=== PATIENT | male | born 1955 | race Caucasian/White ===

== ENCOUNTER → 2016-05-16 | Outpatient (CLI) | payer BC ==
[~2016-05-16] MED LIST: ASPEC325 PO; ATOR-22 PO; CLB200 PO; HYDR-5688 PO; PARO1TAB27 PO; SNK PO; TRAM-10 PO; TRAZ50TA35 PO
[2016-05-16 07:29] LABS: BASO % 0.5 %; BASO ABS # 0.03 K/uL (0-0.2); COMPLETE YES; HEMATOCRIT 46.2 % (42-52); IG% 0.3 %; LYMPH % 20.1 %; LYMPH ABS # 1.16 K/uL (1.2-3.4); MEAN CELL VOLUME 89.5 fL (80-100); MEAN CORPUSCULAR HEMOGLOBIN 30.6 pg (25-34); MEAN CORPUSCULAR HGB CONC 34.2 g/dl (32-36); MONO % 7.6 %; NEUT % 68.5 %; PLATELET COUNT 290 K/uL (130-400); RED BLOOD COUNT 5.16 M/uL (4.7-6.1); WHITE BLOOD COUNT 5.76 K/uL (4.8-10.8)
[2016-05-16 07:54] LABS: ALT/SGPT 18 U/L (12-78); AST/SGOT 11 U/L (15-37); BLOOD UREA NITROGEN 13 mg/dl (7-18); BUN/CREATININE RATIO 13.4 (10-20); CARBON DIOXIDE 24 mmol/L (21-32); CHLORIDE 111 mmol/L (98-107); CREATININE 0.98 mg/dl (0.60-1.40); GLUCOSE 111 mg/dl (70-99); POTASSIUM 3.8 mmol/L (3.5-5.1); SODIUM 145 mmol/L (136-145)
[2016-05-16 07:57] LABS: ALB/GLOB RATIO 1.3 (0.9-2); ALKALINE PHOSPHATASE 59 U/L (45-117); CHOLESTEROL 188 mg/dl (0-200); CHOLESTEROL/HDL RATIO 3.6; HDL CHOLESTEROL 52 mg/dl; LDL CHOLESTEROL CALCULATED 108 mg/dl; TRIGLYCERIDES 138 mg/dl (0-150); VERY LOW DENSITY LIPOPROT CALC 28 mg/dl
== END | disposition home or self-care (01) ==
LOC: C.LAB 07:03
PROVIDERS: ATTEND Nurse Practitioner Family
DX: E78.00 Pure hypercholesterolemia, unspecified (principal); R73.9 Hyperglycemia, unspecified; M19.90 Unspecified osteoarthritis, unspecified site

== ENCOUNTER → 2016-08-02 | Outpatient (CLI) | payer BC ==
[~2016-08-02] MED LIST changes: +BUSP-8 PO; +CHOL200010 PO; +ZINC1CAP PO
[2016-08-02 09:59] LABS: BLOOD UREA NITROGEN 11 mg/dl (7-18); CREATININE 0.95 mg/dl (0.60-1.40)
== END | disposition home or self-care (01) ==
LOC: C.LAB 07:00
PROVIDERS: ATTEND Physician Assistant
DX: Z11.59 Encounter for screening for other viral diseases (principal); E55.9 Vitamin D deficiency, unspecified; H90.42 Sensorineural hearing loss, unilateral, left ear, with unrestricted hearing on the contralateral side

== ENCOUNTER → 2016-08-04 | Outpatient (CLI) | payer BC ==
[~2016-08-04] MED LIST changes: +GADAVIST IV PRN
--- NOTE | 2016-08-04 17:55 | DIAGNOSTIC IMAGING REPORT ---
BRAIN COMBO FOR IAC CLINICAL HISTORY: Left sided asymmetric sensorineural hearing loss. COMPARISON STUDY: Head CT February 12, 2015. TECHNIQUE: Utilizing 1.5 Aleyda magnet and dedicated coil, multiplanar, multi echo imaging of the brain was performed pre and postcontrast administration with thin cut imaging through the internal auditory canals. Injection of 7.5 cc of Gadavist IV was uneventful. FINDINGS: There are no areas of restricted diffusion. No acute intracranial hemorrhage, midline shift or mass effect is present. Brain volume is normal. Ventricular system is normal. Basilar cisterns are patent. No extra-axial collections are present. Flow-voids for the major intracranial vessels are present. There are no intracranial masses or areas of pathologic enhancement. No abnormality is identified within the internal auditory canals. Semicircular canals are intact. There is no mass within the cerebellopontine angles. Calvarial signal is unremarkable. Scattered white matter T2 hyperintense foci likely reflect mild small vessel disease. IMPRESSION: 1. No acute intracranial findings. 2. No abnormalities within the internal auditory canals. 3. No intracranial masses or pathologic enhancement. 4. Scattered white matter T2 hyperintense foci which likely reflect mild small vessel disease. Electronically signed by: Brown Barroso M.D. 08/04/2016 5:53 PM Dictated Date/Time: 08/04/2016 5:48 PM
== END ==
LOC: C.MRI 16:35
PROVIDERS: ATTEND Physician Assistant
DX: H90.42 Sensorineural hearing loss, unilateral, left ear, with unrestricted hearing on the contralateral side (principal)

== ENCOUNTER → 2016-11-01 | Outpatient (CLI) | payer BC ==
[~2016-11-01] MED LIST changes: -BUSP-8 PO; -CHOL200010 PO; -GADAVIST IV PRN; -ZINC1CAP PO
[2016-11-01 10:19] LABS: ALT/SGPT 18 U/L (12-78); BLOOD UREA NITROGEN 17 mg/dl (7-18); BUN/CREATININE RATIO 16.8 (10-20); CALCIUM 9.3 mg/dl (8.5-10.1); CARBON DIOXIDE 28 mmol/L (21-32); CHLORIDE 109 mmol/L (98-107); CHOLESTEROL 182 mg/dl (0-200); CREATININE 0.98 mg/dl (0.60-1.40); GLUCOSE 101 mg/dl (70-99); POTASSIUM 4.2 mmol/L (3.5-5.1); SODIUM 144 mmol/L (136-145); TRIGLYCERIDES 86 mg/dl (0-150); VERY LOW DENSITY LIPOPROT CALC 17 mg/dl
[2016-11-01 10:22] LABS: ALB/GLOB RATIO 1.2 (0.9-2); ALKALINE PHOSPHATASE 75 U/L (45-117); AST/SGOT 13 U/L (15-37); CHOLESTEROL/HDL RATIO 2.6; HDL CHOLESTEROL 69 mg/dl; LDL CHOLESTEROL CALCULATED 96 mg/dl
== END | disposition home or self-care (01) ==
LOC: C.LAB 07:13
PROVIDERS: ATTEND Nurse Practitioner Family
DX: R73.9 Hyperglycemia, unspecified (principal); E78.00 Pure hypercholesterolemia, unspecified

== ENCOUNTER → 2017-04-13 | Day surgery (SDC) | payer BC ==
[2017-03-28 15:00] VITALS: Ht 182.9 cm; Wt 75.5 kg
--- NOTE | 2017-03-28 15:33 | PAT Medication Instructions ---
Service Date Mar 28, 2017. Current Home Medication List Atorvastatin (Lipitor), 20 MG PO QPM Buspirone Hcl (Buspirone Hcl), 1 TAB PO BID Cholecalciferol (Vitamin D), 1 TAB PO HS Paroxetine (Paxil), 20 MG PO BID Trazodone Hcl (Trazodone), 50 MG PO HS PRN for Sleep Zinc Sulfate (Zinc Sulfate), 220 MG PO QPM Medication Instructions For Your Scheduled Surgery - Take the following medications the morning of surgery with a sip of water: Paroxetine (Paxil), 20 MG PO BID Buspirone Hcl (Buspirone Hcl), 1 TAB PO BID - Take the following medications as scheduled the night before surgery: Zinc Sulfate (Zinc Sulfate), 220 MG PO QPM Trazodone Hcl (Trazodone), 50 MG PO HS PRN for Sleep (if needed) Paroxetine (Paxil), 20 MG PO BID Cholecalciferol (Vitamin D), 1 TAB PO HS Atorvastatin (Lipitor), 20 MG PO QPM Buspirone Hcl (Buspirone Hcl), 1 TAB PO BID If you have any questions please call us at [phone] or [phone] or [phone]
[2017-03-28 16:02] LABS: BASO % 0.3 %; BASO ABS # 0.03 K/uL (0-0.2); EOS % 1.2 %; EOS ABS # 0.11 K/uL (0-0.5); HEMATOCRIT 43.5 % (42-52); HEMOGLOBIN 14.8 g/dL (14.0-18.0); IG# 0.02 K/uL (0.00-0.02); LYMPH % 18.7 %; LYMPH ABS # 1.76 K/uL (1.2-3.4); MEAN CELL VOLUME 91.4 fL (80-100); MEAN CORPUSCULAR HEMOGLOBIN 31.1 pg (25-34); MEAN PLATELET VOLUME 9.3 fL (7.4-10.4); MONO ABS # 0.56 K/uL (0.11-0.59); NEUT % 73.6 %; NEUT ABS # 6.92 K/uL (1.4-6.5); PLATELET COUNT 221 K/uL (130-400); RED CELL DISTRIBUTION WIDTH CV 14.1 % (11.5-14.5); RED CELL DISTRIBUTION WIDTH SD 47.2 fL (36.4-46.3)
[2017-03-28 16:10] LABS: CREATININE 0.87 mg/dl (0.60-1.40); POTASSIUM 4.1 mmol/L (3.5-5.1)
--- NOTE | 2017-03-28 16:14 | DIAGNOSTIC IMAGING REPORT ---
CHEST 2 VIEWS ROUTINE CLINICAL HISTORY: PAT preoperative evaluation COMPARISON STUDY: 02/12/2015 FINDINGS: The bones soft tissues and hemidiaphragms are normal. The cardiomediastinal silhouette is normal. The lungs are clear. The pulmonary vasculature is normal. IMPRESSION: Negative chest. The above report was generated using voice recognition software. It may contain grammatical, syntax or spelling errors. Electronically signed by: Tariq Gamble M.D. 03/28/2017 4:12 PM Dictated Date/Time: 03/28/2017 4:12 PM
[~2017-04-13] VITALS: Ht 182.9 cm; Wt 75.5 kg
[~2017-04-13] MED LIST changes: -ASPEC325 PO; +ATROPINE SULFATE 0.1 MG/ML 5ML SYR IV PRN; +BACITRACIN OINT 15 GM TUBE ONE; +BUPIVACAINE 0.5 % 5 MG/1 ML MPF 30ML VIAL ONE; +BUSP-8 PO; +CEFAZOLIN SOD 2000MG/15 ML IV PUSH IV ONE; +CHOL200010 PO; -CLB200 PO; +DEXAMETHASONE SOD INJ 4 MG/ML VIAL ONE; +EpHEDrine SULFATE 50MG/5ML SYR ONE; +EpHEDrine SULFATE INJ 50 MG/ML AMP IV PRN; +FENTANYL CITRATE INJ 50 MCG/1 ML 2 ML VIAL IV PRN; +FENTANYL CITRATE INJ 50 MCG/1 ML 2 ML VIAL ONE; -HYDR-5688 PO; +HYDROmorphone INJ 1 MG/ML SYR IV PRN; +LIDOCAINE HCL 2% 2 ML VIAL (20MG/ML) ONE; +MIDAZOLAM HCL 1 MG/ML 2ML VIAL ONE; +ONDANSETRON INJ 2 MG/ML 2 ML VIAL IV PRN; +ONDANSETRON INJ 2 MG/ML 2 ML VIAL ONE; +OXYC7.5T65 PO; +OXYCODONE/ACETAMINOPHEN 7.5-325 TAB PO PRN; +PROMETHAZINE HCL INJ 12.5 MG in SODIUM CHLORIDE 0.9% 50ML 50 ML IV PRN; +PROPOFOL IV EMULSION 10 MG/ML 20 ML VIAL IV ONE; -SNK PO; +SUCCINYLCHOLINE 100MG/5ML SYR IV ONE; +SULF800T23 PO; -TRAM-10 PO; +ZINC1CAP PO
[2017-04-13 13:10] VITALS: BP 144/80; PULSE 71; TEMP 37; O2SAT 98
--- NOTE | 2017-04-13 13:21 | History & Physical Bridge Note ---
H&P Re-Evaluation Bridge Note: I have examined the patient, reviewed the History & Physical and in the interval since the performance of the History & Physical I have noted the following changes of clinical significance: No changes noted
--- NOTE | 2017-04-13 14:29 | Discharge Instructions ---
Discharge Instructions Date of Service Apr 13, 2017. Admission Reason for Admission: Hydrocele Discharge Discharge Diagnosis / Problem: Right Hydrocele Discharge Goals Goal(s): Decrease discomfort, Improve function Activity Recommendations Activity Limitations: per Instructions/Follow-up section Lifting Limitations: no more than 25 pounds, gradually increase as tolerated, until after follow-up appointment Exercise/Sports Limitations: gradually increase as tolerated, until after follow-up appointment May Resume Sexual Activity: after follow-up appointment Shower/Bathe: tomorrow . Instructions / Follow-Up Instructions / Follow-Up Scrotal support and elevation. Monitor for injury. No heavy lifting. No baths or hot tubs. Bandage off tomorrow. Okay to wash 2-3 x daily with warm soapy water. Okay to shower tomorrow. Ice okay 20 mins at a time. Pain meds as needed. Call if swelling or fever. Current Hospital Diet Patient's current hospital diet: reg Discharge Diet Recommended Diet: Regular Diet Procedures Procedures Performed: Right excision of hydrocele Pending Studies Studies pending at discharge: no Medical Emergencies . Who to Call and When: Medical Emergencies: If at any time you feel your situation is an emergency, please call 911 immediately. . Non-Emergent Contact Non-Emergency issues call your: Primary Care Provider, Urologist Call Non-Emergent contact if: you have a fever, temperature is above 101, your pain is not controlled, your pain is worsening, wound has increased drainage, wound has increased redness, wound has increased pain . . "Provider Documentation" section prepared by Tonio Ash,. . VTE Core Measure Inpt VTE Proph given/why not?: SCD's
--- NOTE | 2017-04-13 16:16 | [facility] Operative Report ---
Operative Report Operative Date Apr 13, 2017. Pre-Operative Diagnosis Right Hydrocele Post-Operative Diagnosis Same Procedure(s) Performed Right Hydrocelectomy Surgeon Mihir Inbound Sales Advisor Surgeon(s) None Estimated Blood Loss 18cc Findings Large right hydrocele extending up cord. No masses or lesions. Specimens Right Hydrocele sac Anesthesia General Complication(s) None Disposition Recovery Room / PACU Indications Large bothersome hydrocele on right with worsening issues and discomfort. Risks and benefits discussed at length. Description of Procedure Patient was consented and brought back to the operating room. Patient was placed under anesthesia in the supine position. Patient was prepped and draped in the regular sterile fashion. A time out was completed. With timeout completed, the midline raphe was marked and local anesthetic placed. An incision was made with a scalpel and the subcutaneous tissues were opened with a bovie and the right testicle delivered from the right hemiscrotum. A large hydrocele was observed. The hydrocele was opened and excess tissues were removed. The testicle and cord and sturctures were examined. No bleeding or other areas of concern were noted. At this point, a 3- 0 chromic suture was used to oversew the hydrocele sac edges and to control any bleeding. The hemiscrotum was irrigated and all bleeding controlled. A cord block was completed. The testicle was delivered back into the scrotum and the subcutaneous tissues were closed with a running vicryl suture. The skin was closed with a running monocryl suture. The area was cleaned and adhesive glue was placed on the incision. Bandages were placed as well as scrotal support. The patient was cleaned, aroused from anesthesia, and transferred to the pacu in stable condition having tolerated the procedure well with no complications. I was present and participated in all aspects of the procedure. I attest to the content of the Intraoperative Record and any orders documented therein. Any exceptions are noted below.
--- NOTE | 2017-04-13 17:13 | Anesthesiology Progress Note ---
Anesthesia Post Op Note Date & Time Apr 13, 2017 at 17:13 Vital Signs Pain Intensity: 0 Vital Signs Past 12 Hours Date Time Temp Pulse Resp B/P (MAP) Pulse Ox O2 Delivery O2 Flow Rate FiO2 04/13/17 17:05 78 21 126/81 92 Room Air 04/13/17 16:55 81 24 133/79 94 Room Air 04/13/17 16:45 84 14 128/67 96 Oxymask 10 04/13/17 16:37 36.3 94 19 159/67 99 Oxymask 10 04/13/17 13:10 37 71 18 144/80 (101) 98 Room Air Notes Mental Status: alert / awake / arousable, participated in evaluation Pt Amnestic to Procedure: Yes Nausea / Vomiting: adequately controlled Pain: adequately controlled Airway Patency, RR, SpO2: stable & adequate BP & HR: stable & adequate Hydration State: stable & adequate Anesthetic Complications: no major complications apparent
[2017-04-13 17:15] VITALS: BP 146/90; PULSE 84; TEMP 37.1; O2SAT 95
[2017-04-13 17:45] VITALS: BP 156/82; PULSE 77; O2SAT 95
[2017-04-13 18:05] VITALS: BP 149/86; PULSE 80; TEMP 36.9; O2SAT 95
--- NOTE | 2017-04-18 09:52 | Anesthesiology Progress Note ---
Anesthesia Progress Note Date of Service Apr 13, 2017. Progress Notes 1640 - During emergence patient was extubated. Upon removal of ETT, patient took a deep breath and soft bite block (4x4 guaze) fell into patient mouth. Exchanging well with 02 sat 96%. Clenching teeth. Unable to open mouth. Patient not following commands to open mouth. Dr. Alfonso called to room. 100mg propofol given. Assisted mask vent. Able to open pt mouth but unable to visualize bite block. Glidescope used to visualize bite block at back of throat and removed with forceps. Pt exchanging well. O2 sats high 90s. Patient awake with no issues. transported to PACU.
== END | disposition home or self-care (01) ==
LOC: C.ACU 12:50
PROVIDERS: ATTEND Urology
DX: N43.3 Hydrocele, unspecified (principal); G47.33 Obstructive sleep apnea (adult) (pediatric); F17.200 Nicotine dependence, unspecified, uncomplicated; E78.00 Pure hypercholesterolemia, unspecified; Z96.642 Presence of left artificial hip joint; Z98.52 Vasectomy status; F17.290 Nicotine dependence, other tobacco product, uncomplicated; F41.9 Anxiety disorder, unspecified; M19.90 Unspecified osteoarthritis, unspecified site; Z98.890 Other specified postprocedural states; Z79.899 Other long term (current) drug therapy; Z80.42 Family history of malignant neoplasm of prostate; Z80.1 Family history of malignant neoplasm of trachea, bronchus and lung

== ENCOUNTER → 2017-05-11 | Outpatient (CLI) | payer BC ==
[~2017-05-11] MED LIST changes: -ATROPINE SULFATE 0.1 MG/ML 5ML SYR IV PRN; -BACITRACIN OINT 15 GM TUBE ONE; -BUPIVACAINE 0.5 % 5 MG/1 ML MPF 30ML VIAL ONE; -CEFAZOLIN SOD 2000MG/15 ML IV PUSH IV ONE; -DEXAMETHASONE SOD INJ 4 MG/ML VIAL ONE; -EpHEDrine SULFATE 50MG/5ML SYR ONE; -EpHEDrine SULFATE INJ 50 MG/ML AMP IV PRN; -FENTANYL CITRATE INJ 50 MCG/1 ML 2 ML VIAL IV PRN; -FENTANYL CITRATE INJ 50 MCG/1 ML 2 ML VIAL ONE; -HYDROmorphone INJ 1 MG/ML SYR IV PRN; -LIDOCAINE HCL 2% 2 ML VIAL (20MG/ML) ONE; -MIDAZOLAM HCL 1 MG/ML 2ML VIAL ONE; -ONDANSETRON INJ 2 MG/ML 2 ML VIAL IV PRN; -ONDANSETRON INJ 2 MG/ML 2 ML VIAL ONE; -OXYCODONE/ACETAMINOPHEN 7.5-325 TAB PO PRN; -PROMETHAZINE HCL INJ 12.5 MG in SODIUM CHLORIDE 0.9% 50ML 50 ML IV PRN; -PROPOFOL IV EMULSION 10 MG/ML 20 ML VIAL IV ONE; -SUCCINYLCHOLINE 100MG/5ML SYR IV ONE
[2017-05-11 09:38] LABS: BASO % 0.3 %; BASO ABS # 0.03 K/uL (0-0.2); EOS % 1.5 %; EOS ABS # 0.13 K/uL (0-0.5); HEMATOCRIT 44.6 % (42-52); HEMOGLOBIN 15.6 g/dL (14.0-18.0); IG# 0.02 K/uL (0.00-0.02); LYMPH % 12.1 %; LYMPH ABS # 1.07 K/uL (1.2-3.4); MEAN CELL VOLUME 90.8 fL (80-100); MEAN CORPUSCULAR HEMOGLOBIN 31.8 pg (25-34); MEAN PLATELET VOLUME 9.3 fL (7.4-10.4); MONO % 8.9 %; MONO ABS # 0.78 K/uL (0.11-0.59); NEUT ABS # 6.78 K/uL (1.4-6.5); PLATELET COUNT 292 K/uL (130-400); RED CELL DISTRIBUTION WIDTH CV 14.4 % (11.5-14.5); RED CELL DISTRIBUTION WIDTH SD 47.9 fL (36.4-46.3); WHITE BLOOD COUNT 8.81 K/uL (4.8-10.8)
[2017-05-11 09:47] LABS: HEMOGLOBIN A1C 5.7 % (4.5-5.6)
[2017-05-11 10:11] LABS: ALBUMIN 3.9 gm/dl (3.4-5.0); ALT/SGPT 20 U/L (12-78); AST/SGOT 14 U/L (15-37); BLOOD UREA NITROGEN 11 mg/dl (7-18); CALCIUM 8.8 mg/dl (8.5-10.1); CARBON DIOXIDE 29 mmol/L (21-32); CREATININE 0.93 mg/dl (0.60-1.40); GLUCOSE 84 mg/dl (70-99); POTASSIUM 3.6 mmol/L (3.5-5.1); SODIUM 141 mmol/L (136-145)
[2017-05-11 10:13] LABS: ALKALINE PHOSPHATASE 91 U/L (45-117); CHOLESTEROL 150 mg/dl (0-200); LDL CHOLESTEROL CALCULATED 73 mg/dl; TOTAL PROTEIN 7.3 gm/dl (6.4-8.2)
== END | disposition home or self-care (01) ==
LOC: C.LAB 07:16
PROVIDERS: ATTEND Nurse Practitioner Family
DX: E78.00 Pure hypercholesterolemia, unspecified (principal); R73.9 Hyperglycemia, unspecified; E55.9 Vitamin D deficiency, unspecified

== ENCOUNTER → 2017-06-07 | Outpatient (CLI) | payer BC | END | disposition home or self-care (01) | LOC: C.LAB 07:39 | PROVIDERS: ATTEND Nurse Practitioner Family | DX: R03.0 Elevated blood-pressure reading, without diagnosis of hypertension (principal) ==

== ENCOUNTER 2018-11-08 06:47 | Inpatient (IN) ==
[2018-11-08] MEDS ORDERED: SODIUM CHLORIDE 0.9% 1000ML 1,000 ML IV SCH (07:15)
[2018-11-08] MEDS ORDERED: KETOROLAC TROMETHAMINE 15 MG/ML VIAL IV ONE (07:21)
--- NOTE | 2018-11-08 07:23 | XRay Report ---
XR chest 1V portable CLINICAL HISTORY: Dyspnea COMPARISON STUDY: Chest CT April 26, 2018. FINDINGS: Bibasilar opacities favor atelectasis. There is no evidence for pulmonary edema. Cardiomedi astinal silhouette is stable. Paucity of upper lobe vessels is noted. There is no pneumothorax or ple ural effusion. IMPRESSION: Bibasilar opacities, atelectasis is favored. Electronically signed by: Brown Barroso M.D. 11/08/2018 7:22 AM
[2018-11-08 07:49] LABS: Basophils # (auto) 0.02 K/uL (0-0.2); Basophils % (auto) 0.2 %; Eosinophils # (auto) 0.06 K/uL (0-0.5); Eosinophils % (auto) 0.5 %; Hematocrit (blood only) 42.1 % (42-52); Hemoglobin 14.4 g/dL (14.0-18.0); Immature Granulocytes # (auto) 0.04 K/uL (0.00-0.02); Immature Granulocytes % (auto) 0.4 %; Lymphocytes # (auto) 1.03 K/uL (1.2-3.4); Lymphocytes % (auto) 9.3 %; Mean Corpuscular Hgb Conc 34.2 g/dL (32-36); Mean Corpuscular Volume 90.5 fL (80-100); Mean Platelet Volume 8.6 fL (7.4-10.4); Monocytes # (auto) 1.21 K/uL (0.11-0.59); Monocytes % (auto) 10.9 %; Neutrophils % (auto) 78.7 %; Platelet Count 205 K/uL (130-400); RDW Coefficient of Variation 13.7 % (11.5-14.5); RDW Standard Deviation 45.4 fL (36.4-46.3); Red Blood Count 4.65 M/uL (4.7-6.1); White Blood Count 11.06 K/uL (4.8-10.8)
[2018-11-08 07:59] LABS: INR 1.2 (0.9-1.1); Partial Thromboplastin Time 26.6 Seconds (21.0-31.0); Prothrombin Time 11.8 Seconds (9.0-12.0)
[2018-11-08 08:05] LABS: D Dimer 2190 ug/L FEU (0-500)
[2018-11-08 08:06] LABS: Alanine Aminotransferase 18 U/L (12-78); Albumin Level 3.4 gm/dl (3.4-5.0); Aspartate Aminotransferase 9 U/L (15-37); Blood Urea Nitrogen 19 mg/dl (7-18); Calcium 8.9 mg/dl (8.5-10.1); Carbon Dioxide 27 mmol/L (21-32); Chloride 108 mmol/L (98-107); Creatinine Clr Calc Pharmacy 53.8 ml/min; Est GFR (African American) 58.6; Est GFR (Non-African American) 50.5; Glucose 120 mg/dl (70-99); Potassium 3.8 mmol/L (3.5-5.1); Sodium 140 mmol/L (136-145)
[2018-11-08 08:09] LABS: Albumin Globulin Ratio 0.9 (0.9-2); Alkaline Phosphatase 80 U/L (45-117); Bilirubin,Total 1.1 mg/dl (0.2-1); Globulin 3.7 gm/dl (2.5-4.0); Total Protein 7.1 gm/dl (6.4-8.2); Troponin I < 0.015 ng/ml (0-0.045)
[2018-11-08] MEDS ORDERED: OPTIRAY 320 125ml IV PRN (08:58)
--- NOTE | 2018-11-08 09:05 | Ultrasound Report ---
US gallbladder CLINICAL HISTORY: Right upper quadrant abdominal pain. COMPARISON STUDY: Abdominal ultrasound February 12, 2018. CT of the abdomen and pelvis June 22, 2018. FINDINGS: Right kidney is surgically absent. Liver is sonographically normal. Exam is compromised by suboptimal penetration. No gallstones are identified. There is no gallbladder wall thickening. The pa ncreas is partially obscured. There is no biliary ductal dilatation. The common bile duct measures 5 mm in caliber. IMPRESSION: 1. No gallstones or biliary ductal dilatation. 2. Status post right nephrectomy. Electronically signed by: Brown Barroso M.D. 11/08/2018 9:04 AM
--- NOTE | 2018-11-08 09:11 | CT Scan Report ---
CT ANGIOGRAPHY OF THE CHEST, PULMONARY EMBOLUS PROTOCOL CLINICAL HISTORY: Dyspnea, chest pain and hemoptysis. COMPARISON STUDY: Chest CT April 26, 2018. Chest radiograph performed earlier today. TECHNIQUE: Following IV administration of 120 mL of Optiray-320, helical axial images of the chest we re obtained utilizing the pulmonary embolus protocol. Maximal intensity projections and sagittal and coronal reformats were viewed on an independent 3D workstation. IV contrast was administered withou t complication. Automated exposure control was utilized for the study. A dose lowering technique wa s utilized adhering to the principles of ALARA. CT DOSE: 276.05 mGy.cm FINDINGS: Multiple segmental bilateral pulmonary emboli are noted, including segmental emboli within the lingula, left lower lobe, right upper lobe, right middle lobe and right lower lobe. There is no CT evidence for right heart strain. The heart is mildly enlarged. Mild dilatation of the ascending ao rta measuring 4.1 cm is unchanged. Trace bilateral pleural effusions are noted. Note is made of a 4.9 x 3.2 cm subpleural right middle lobe opacity consistent with an infarct. There is no pneumothorax. Bony thorax is unremarkable. Upper abdomen is unremarkable. IMPRESSION: 1. Multiple segmental bilateral pulmonary emboli. 4.9 x 3.2 cm right middle lobe pulmonary infarct. 2. Trace bilateral pleural effusions. Electronically signed by: Brown Barroso M.D. 11/08/2018 9:10 AM
[2018-11-08] MEDS ORDERED: HEPARIN 25000 UNIT/500 ML D5W IV ONE (09:42)
[2018-11-08] MEDS ORDERED: HEPARIN SOD 5,000 UNIT/0.5 ML VIAL ONE (09:43)
[2018-11-08] MEDS ORDERED: MoRPHine SULFATE 4 MG/ML 1 ML CARP\\VIAL IV STA (09:53)
[2018-11-08] MEDS ORDERED: ONDANSETRON INJ 2 MG/ML 2 ML VIAL IV STA (09:53)
--- NOTE | 2018-11-08 10:12 | History & Physical Report ---
Date of Service November 08, 2018 Assessment & Plan (1) Bilateral pulmonary embolism: (2) Pleural effusion: (3) Pulmonary infarct: -Admit to telemetry -D-dimer elevated at 2190 upon admission along with chest pain -CT reviewed showing multiple segmental bilateral PEs, right middle lobe pulmona ry infarct measuring 4.9 x 3.2 cm and bilateral pleural effusions. -Pulmonary consultation, discussed with Dr. alexandra over the phone. -Continue heparin drip with bolus -Incentive spirometry, flutter, supplemental O2 as needed, currently saturations are adequate on room air, encourage ambulation and deep breaths -Morphine IV for pain as needed -Check 2D echo -Venous Dopplers BLE stat to rule out DVT despite no swelling or calf pain -Initial troponin is negative, trending x2 more sets -EKG reviewed without significant ST wave inversions or changes (4) Chest pain: -Trend troponins x2 more sets, initial negative -Echo ordered -Chest pain improved with morphine IV, not reproducible on palpation -EKG reviewed (5) Renal mass: (6) History of right nephrectomy: (7) Renal cell carcinoma: -Follows with urology, Dr. Ash as an outpatient -Status post right nephrectomy February 2018, did not require chemotherapy or XRT -Creatinine 1.45, continue NSS at 125 mL/hr for now for hydration -Avoid nephrotoxins, renally dose medications (8) Anxiety: -Continue Paxil 1 mg p.o.BID, BuSpar 15 mg BID, trazodone 50 mg HS (9) Hypercholesteremia: -Continue atorvastatin 20 mg HS (10) DVT prophylaxis: -Teds, heparin drip, encourage ambulation Disposition: From home, likely to remain in hospital for at least 2 days. History of Present Illness Primary Care Provider: Wisam Kunz, III, LIFE CONSULTANT This is a 62-year-old male with PMHx of Right nephrectomy d/t RCC in February 2018, remote tobacco use - smoked 1/2-3/4 of a pack x 15 years, quit 8 months ago, anxiety, depression, insomnia, HLD, vitamin D deficiency who presents today with a right-sided deep chest pain x1 day. Patient notes that he was having difficulty taking deep breaths. He denies dyspnea at rest or on exertion specifically. Patient was coughing and having difficulty clearing, then coughed up a bloody clot the size of a quarter this morning. He was recently traveling last weekend to [facility], with a stay overnight to visit family. He admits to sitting for a large portion of his day during work and at home. He does not exercise routinely. He denies any calf pain or swelling of the legs. The patient has been under significant amount of stress at work recently and notes he is planning on retiring next summer which is causing him increased stress versus him looking forward to it. D-dimer significantly elevated at 2190 CTA reveals multiple segmental bilateral pulmonary embolisms, with a right mid dle lobe pulmonary infarct measuring 4.9 x 3.2 cm and bilateral pleural effusions. Started on a heparin drip + bolus Allergies Allergy/AdvReac Type Severity Reaction Status Date / Time pollen extracts Allergy Mild HAY FEVER Verified 11/08/18 07:38 No Known Drug Allergies Allergy Unknown NKDA Verified 11/08/18 07:38 GLUE ON NICOTINE PATCH AdvReac Mild raised red Uncoded 11/08/18 07:38 patch Home Medications Home Medications Medication Instructions Recorded Confirmed Type buspirone 15 mg PO BID 03/09/18 11/08/18 History trazodone 50 mg PO HS 03/09/18 11/08/18 History atorvastatin 20 mg PO HS 11/08/18 11/08/18 History paroxetine HCl 1 mg PO BID 11/08/18 11/08/18 History Past Med/Surg History Medical History Anxiety Hearing deficit HEARING AID- LEFT EAR Kidney tumor RIGHT- REASON FOR PROCEDURE Osteoarthritis Surgical History History of right nephrectomy History of colonoscopy History of esophagogastroduodenoscopy (EGD) History of herniorrhaphy INGUINAL History of hydrocelectomy RIGHT HYDROCELECTOMY= 04/13/17= LMA 5 PLACED- "UNABLE TO SEAT WELL. ? SPASM." ATRAMAUTIC DVL X 1. GRADE VIEW 1, MAC 3, ETT 7.5 AT [facility] History of tooth extraction History of total hip arthroplasty LEFT Social History Preferred Language: Danish Communication Ability: Effective Visual Impairment: No Limitations Manufacturing Machine Operator Required: No Beliefs That Will Affect Care: Faith Faith Beliefs: judaism pastor emily grady Current Living Situation: Spouse Feels Safe at Home: Yes Safety Concerns: Feels Safe At This Time Smoking Status: Former smoker Tobacco Type: cigarettes Cigarettes Per Day: 3-4 cig per day Smoking End Date: 02/2018 Second Hand Exposure: No Hx Alcohol Use: Yes Alcohol type: hard liquor Hx Substance Use: Yes substance use type: marijuana Last Used Substance: Days (ago) Review of Systems Review of Systems: Constitutional: No fever, sweats or chills Eyes: No diplopia, no worsening or blurred vision ENT: normal hearing, no trouble swallowing Respiratory: + cough, + bloody sputum, no dyspnea at rest or on exertion Cardiovascular: + Right-sided chest pain, no tightness or palpitations Abdomen: No pain, nausea, vomiting, diarrhea or constipation Musculoskeletal: No joint pain, calf pain, swelling Neurologic: No weakness, numbness/tingling, or balance problems Psychiatric: + anxiety and depression, on medications Skin: No rash or itch Physical Exam Physical Exam: General: awake, alert, no apparent distress, + anxious affect Head: Normocephalic, atraumatic ENT: PERRL, EOMI, no pharyngeal exudate, mucous membranes moist Chest: Clear to auscultation except diminished in the RML, O2 sats =94% on room air, no adventitious breath sounds Cardiac: Regular rate and rhythm, no murmur, no JVD, normal peripheral pulses, good capillary refill Abdominal: NABS x 4 quadrants, soft, nontender to palpation, no rebound, guarding or tenderness Extremities: Normal inspection, no peripheral edema or erythema, calfs nontender to palpation Psych: Anxious mood and affect Neuro: AAO x 3, no motor deficits, speech is clear Skin: no rash or erythema Constitutional: WD/WN, vitals as above Eyes: normal visual saleh by confrontation and + anicteric sclerae Neck: normal visual inspection and trachea midline Respiratory: normal respiratory effort; no respiratory distress Auscu ltation: + diminished lung sounds (R sided); no wheezes Cardiovascular: Rate/Rhythm: regular rate and regular rhythm Gastrointestinal (Abdomen): Inspection/Auscultation: abdomen not distended Percussion/Palpation: abdomen soft; abdomen nontender Musculoskeletal: Head/Neck/Chest: normocephalic and head atraumatic Neg for peripheral LE edema, + pedal pulses Skin: no rashes, warm and dry Neurologic: awake; not confused Speech / Cognition: normal speech Psychiatric: A+Ox3, euthymic affect Lymphatic: Exam as done by Kristyn Jung DO Results & Data Vital Signs (Past 12 Hours) Vital Signs Temp Pulse Pulse Resp BP BP Pulse Ox 11/08/18 07:50 65 18 139/81 97 11/08/18 07:30 66 97 11/08/18 06:52 36.5 C 84 18 148/[address] ANGIOGRAPHY OF THE CHEST, PULMONARY EMBOLUS PROTOCOL CLINICAL HISTORY: Dyspnea, chest pain and hemoptysis. COMPARISON STUDY: Chest CT April 26, 2018. Chest radiograph performed earlier today. TECHNIQUE: Following IV administration of 120 mL of Optiray-320, helical axial images of the chest were obtained utilizing the pulmonary embolus protocol. Maximal intensity projections and sagittal and coronal reformats were viewed on an independent 3D workstation. IV contrast was administered without complication. Automated exposure control was utilized for the study. A dose lowering technique was utilized adhering to the principles of ALARA. CT DOSE: 276.05 mGy.cm FINDINGS: Multiple segmental bilateral pulmonary emboli are noted, including segmental emboli within the lingula, left lower lobe, right upper lobe, right middle lobe and right lower lobe. There is no CT evidence for right heart strain. The heart is mildly enlarged. Mild dilatation of the ascending aorta measuring 4.1 cm is unchanged. Trace bilateral pleural effusions are noted. Note is made of a 4.9 x 3.2 cm subpleural right middle lobe opacity consistent with an infarct. There is no pneumothorax. Bony thorax is unremarkable. Upper abdomen is unremarkable. IMPRESSION: 1. Multiple segmental bilateral pulmonary emboli. 4.9 x 3.2 cm right middle lobe pulmonary infarct. 2. Trace bilateral pleural effusions. US gallbladder CLINICAL HISTORY: Right upper quadrant abdominal pain. COMPARISON STUDY: Abdominal ultrasound February 12, 2018. CT of the abdomen and pelvis June 22, 2018. FINDINGS: Right kidney is surgically absent. Liver is sonographically normal. Exam is compromised by suboptimal penetration. No gallstones are identified. There is no gallbladder wall thickening. The pancreas is partially obscured. There is no biliary ductal dilatation. The common bile duct measures 5 mm in caliber. IMPRESSION: 1. No gallstones or biliary ductal dilatation. 2. Status post right nephrectomy. XR chest 1V portable CLINICAL HISTORY: Dyspnea COMPARISON STUDY: Chest CT April 26, 2018. FINDINGS: Bibasilar opacities favor atelectasis. There is no evidence for pulmonary edema. Cardiomediastinal silhouette is stable. Paucity of upper lobe vessels is noted. There is no pneumothorax or pleural effusion. IMPRESSION: Bibasilar opacities, atelectasis is favored. ECG Additional Comments: 08-NOV-2018 07:26:26 [facility]-EDSTAT ROUTINE RETRIEVAL Normal sinus rhythm Possible Left atrial enlargement Nonspecific ST abnormality Abnormal ECG When compared with ECG of 28-MAR-2017 15:44, No significant change was found 25mm/s 10mm/mV 150Hz 9.0.8 12SL 241 DENISA: 15 Referred by: REFERRED SELF Unconfirmed Vent. rate 75 BPM TN interval 138 ms QRS duration 82 ms QT/QTc 380/424 ms P-R-T axes 67 52 52 Code Status & VTE Plan Code Status -Full code: discussed with the patient at bedside. He reports that he would not want any heroic measures. Supervising Physician Co-Signing Physician Notes Pt seen and examined by me. States his chest pain is resolved now. "It feels good to take a deep breath again." Tolerating PO without issue. Agree with HPI/ROS as noted by PA. See above for my exam in PE section Agree with plan as outlined above b/l PE, started on hep drip and feeling improved already PG Care Time/CCT Total # of Minutes Spent Total Time Spent with Patient: Total time spent is greater than 50% in coordination of care (as documented) at patient's floor/unit and/or counseling patient: (1) Chest pain Chest pain type: unspecified Qualified Code(s): R07.9 - Chest pain, unspecified
--- NOTE | 2018-11-08 11:51 | Ultrasound Report ---
US venous doppler LE BI HISTORY: Pain. Edema. confirmed PE, r/o DVT COMPARISON STUDY: None. FINDINGS: Study is positive for bilateral acute deep venous thrombosis. This involves the posterior t ibial veins bilaterally. Compressibility is compromised. All remaining venous structures are intact. IMPRESSION: Bilateral acute deep venous thrombosis involving the posterior tibial veins bilaterally. The above report was generated using voice recognition software. It may contain grammatical, syntax or spelling errors. Electronically signed by: Tariq Gamble M.D. 11/08/2018 11:50 AM
[2018-11-08] MEDS ORDERED: ACETAMINOPHEN 325 MG TAB PO PRN (11:52)
[2018-11-08] MEDS ORDERED: ONDANSETRON INJ 2 MG/ML 2 ML VIAL IV PRN (11:52)
[2018-11-08] MEDS: Heparin Adult STANDARD Wt-Based Dextrose 5% 25,000 units/500 mL IV SCH (11:58)
[2018-11-08] MEDS ORDERED: Heparin Adult STANDARD Wt-Based Dextrose 5% 25,000 units/500 mL IV SCH (12:30)
[2018-11-08] MEDS ORDERED: HEPARIN IV BOLUS 5,000 UNITS in SYRINGE 0 ML IV ONE (12:30)
[2018-11-08] MEDS: SODIUM CHLORIDE 0.9% 1000ML 1,000 ML IV SCH ×2 (12:48→19:57)
--- NOTE | 2018-11-08 13:34 | Emergency Department Note ---
Entered by Lashell Diaz acting as a scribe for History of Present Illness General Chief complaint: Rib Injury/Pain Stated complaint: RIP PAIN Source: patient History of Present Illness Onset (ago): hour(s) (16) Location: chest (rib) and right Pain Consistency: + other (worsening) Maximum Pain Intensity: 6 Exacerbated By: + movement and + other (deep breaths) Associated symptoms: + cough (productive with bright red blood), + shortness of breath and + other (negative runny nose; negative congestion; negative sore throat; negative abdominal pain; negative diarrhea; negative urinary symptoms); no nausea/vomiting The patient is a 62 year old male with a PMHx of renal cancer and nephrectomy who presents to the Emergency Room with complaints of worsening right-sided rib pain that began about 16 hours prior to arrival. The patient states that his p ain is exacerbated with shortness of breath and movement. He reports shortness of breath, and states that this morning he coughed up bright red blood with mucous. The patient denies runny nose, congestion, sore throat, abdominal pain, nausea, vomiting, diarrhea, and urinary symptoms. The patient states that he has no history of COPD, asthma, or blood clots. He reports driving to [place] several days ago, but denies any recent long trips. No other exacerbating or remitting factors. Home Medications Home Medications Medication Instructions Recorded Confirmed Type buspirone 15 mg PO BID 03/09/18 11/08/18 History trazodone 50 mg PO HS 03/09/18 11/08/18 History atorvastatin 20 mg PO HS 11/08/18 11/08/18 History paroxetine HCl 1 mg PO BID 11/08/18 11/08/18 History Allergies Allergy/AdvReac Type Severity Reaction Status Date / Time pollen extracts Allergy Mild HAY FEVER Verified 11/08/18 07:38 No Known Drug Allergies Allergy Unknown NKDA Verified 11/08/18 07:38 GLUE ON NICOTINE PATCH AdvReac Mild raised red Uncoded 11/08/18 07:38 patch Past Med/Surg History Medical History Anxiety Hearing deficit HEARING AID- LEFT EAR Kidney tumor RIGHT- REASON FOR PROCEDURE Osteoarthritis Surgical History History of right nephrectomy History of colonoscopy History of esophagogastroduodenoscopy (EGD) History of herniorrhaphy INGUINAL History of hydrocelectomy RIGHT HYDROCELECTOMY= 04/13/17= LMA 5 PLACED- "UNABLE TO SEAT WELL. ? SPASM." ATRAMAUTIC DVL X 1. GRADE VIEW 1, MAC 3, ETT 7.5 AT [facility] History of tooth extraction History of total hip arthroplasty LEFT Social History Preferred Language: German Communication Ability: Effective Visual Impairment: No Limitations Sample Washer Required: No Beliefs That Will Affect Care: Yarsanism Yarsanism Beliefs: mosque pastor emily grady Current Living Situation: Spouse Feels Safe at Home: Yes Safety Concerns: Feels Safe At This Time Smoking Status: Former smoker Tobacco Type: cigarettes Cigarettes Per Day: 3-4 cig per day Smoking End Date: 02/2018 Second Hand Exposure: No Hx Alcohol Use: Yes Alcohol type: hard liquor Hx Substance Use: Yes substance use type: marijuana Last Used Substance: Days (ago) Review of Systems See HPI for pertinent positives & negatives. and A total of 10 systems reviewed and were otherwise negative Physical Exam Vital Signs Vital Signs - 24 hr 11/08/18 06:52 11/08/18 07:30 11/08/18 07:31 Temperature 36.5 C Temperature Source Oral Sepsis Recent Fever Within 48 Hours No Sepsis Action Taken by Nursing No Action Required Pulse Rate 84 66 82 Pulse Rate [Apical] Pulse Rate from SpO2 Sensor Pulse Rhythm [Apical] Pulse Strength [Apical] Respiratory Rate 18 18 Respiratory Effort / Characteristics Respiratory Depth Normal Respiratory Pattern Blood Pressure 148/79 H Blood Pressure [Left Arm] Blood Pressure Mean 102 Blood Pressure Mean [Left Arm] Blood Pressure Position Sitting Blood Pressure Position [Left Arm] Pulse Oximetry 93 97 Oxygen Delivery Method Room Air Room Air 11/08/18 07:41 11/08/18 07:45 11/08/18 07:50 Temperature Temperature Source Sepsis Recent Fever Within 48 Hours Sepsis Action Taken by Nursing Pulse Rate 69 69 Pulse Rate [Apical] 65 Pulse Rate from SpO2 Sensor 67 67 Pulse Rhythm [Apical] Regular Pulse Strength [Apical] Normal Respiratory Rate 18 22 18 Respiratory Effort / Characteristics Non-Labored Spontaneous Respiratory Depth Normal Respiratory Pattern Regular Blood Pressure 139/81 Blood Pressure [Left Arm] 139/81 Blood Pressure Mean 100 Blood Pressure Mean [Left Arm] 100 Blood Pressure Position Blood Pressure Position [Left Arm] Lying Pulse Oximetry 95 96 97 Oxygen Delivery Method Room Air 11/08/18 08:57 11/08/18 09:45 11/08/18 09:56 Temperature Temperature Source Sepsis Recent Fever Within 48 Hours Sepsis Action Taken by Nursing Pulse Rate 74 Pulse Rate [Apical] 66 Pulse Rate from SpO2 Sensor 74 Pulse Rhythm [Apical] Regular Pulse Strength [Apical] Normal Respiratory Rate 18 18 Respiratory Effort / Characteristics Non-Labored Spontaneous Respiratory Depth Normal Respiratory Pattern Regular Blood Pressure 139/80 122/80 Blood Pressure [Left Arm] 132/78 Blood Pressure Mean 99 94 Blood Pressure Mean [Left Arm] 96 Blood Pressure Position Blood Pressure Position [Left Arm] Lying Pulse Oximetry 94 95 Oxygen Delivery Method Room Air 11/08/18 09:57 11/08/18 10:00 11/08/18 10:01 Temperature Temperature Source Sepsis Recent Fever Within 48 Hours Sepsis Action Taken by Nursing Pulse Rate 78 72 73 Pulse Rate [Apical] 74 Pulse Rate from SpO2 Sensor 77 72 73 Pulse Rhythm [Apical] Regular Pulse Strength [Apical] Normal Respiratory Rate 17 16 21 Respiratory Effort / Characteristics Non-Labored Spontaneous Respiratory Depth Normal Respiratory Pattern Regular Blood Pressure 130/81 Blood Pressure [Left Arm] 130/81 Blood Pressure Mean 97 Blood Pressure Mean [Left Arm] 97 Blood Pressure Position Blood Pressure Position [Left Arm] Lying Pulse Oximetry 95 96 95 Oxygen Delivery Method Room Air GENERAL: Sitting on edge of bed, in moderate distress, holding right lower chest wall. Alert, well nourished, non-toxic EYE EXAM: normal conjunctiva OROPHARYNX: no exudate, no erythema, lips, buccal mucosa, and tongue normal and mucous membranes are moist NECK: supple, no nuchal rigidity, no adenopathy, non-tender CHEST: Acute reproducible tenderness throughout the right mid anterior chest wall. LUNGS: Clear to auscultation. Normal chest wall mechanics HEART: no murmurs, S1 normal and S2 normal ABDOMEN: abdomen soft, non-tender, normo-active bowel sounds, no masses, no rebound or guarding. BACK: Back is symmetrical on inspection and there is no deformity, no midline tenderness, no CVA tenderness. SKIN: no rashes and no bruising UPPER EXTREMITIES: upper extremities are grossly normal. LOWER EXTREMITIES: No pitting edema. Calves equal bilaterally. NEURO EXAM: Normal sensorium, cranial nerves II-XII grossly intact, normal speech, no gross weakness of arms, no gross weakness of legs. Course ED COURSE: Vital signs were reviewed and showed to be normal. The patients medical record was reviewed The above diagnostic studies were performed and reviewed. ED treatments and interventions as stated above. 0700: The patient was evaluated in room A11B. A complete history and physical examination was performed. 0745: The patient notified me that he had a nephrectomy for cancer in February, 8 months ago. 0904: I checked on and updated the patient on all results. 0915: Upon reevaluation, the patient is feeling better. I discussed my findings with the patient and he understands and agrees with the treatment plan. 0955: I discussed the case with Halley Prieto[facility] who accepts the patient for further evaluation. Based on the patients age, coexisting illnesses, exam and lab findings the decision to treat as an inpatient was made. The patient remained stable while under my care. The patient will be evaluated for further management . Administered Medications Heparin Sodium/Dextrose (Heparin Sodium/Dextrose) 25,000 units in 500 mls @ 27 mls/hr IV .[id number] JUSTIN; Protocol Stop: 12/08/18 10:14 Last Titration: 11/08/18 14:59 Dose: 1,350 units/hr, 27 mls/hr Documented by: [id number] Cosigned by: [id number] Admin: 11/08/18 11:58 Dose: 1,350 units/hr, 27 mls/hr Documented by: [id number] Cosigned by: [id number] Sodium Chloride (Nss 1000ml) 1,000 mls @ 125 mls/hr IV .Q8H JUSTIN Stop: 12/08/18 11:51 Last Admin: 11/08/18 12:48 Dose: 125 mls/hr Documented by: [id number] Ioversol (Optiray 320 125ml) 120 ml IV ONCE PRN PRN Reason: Interaction Checking Stop: 11/12/18 08:57 Last Admin: 11/08/18 08:59 Dose: 120 ml Documented by: [id number] Discontinued Medications Heparin Sodium (Porcine) (Heparin Sodium (Porcine)) Confirm Administered Dose 10,000 units .ROUTE .STK-MED ONE Stop: 11/08/18 09:44 Last Admin: 11/08/18 09:51 Dose: 5,000 units Documented by: [id number] Cosigned by: [id number] Heparin Sodium/Dextrose () 1 ea IV NOW STA; Protocol Stop: 11/08/18 09:14 Last Admin: 11/08/18 09:51 Dose: 1 ea Documented by: [id number] Heparin Sodium/Dextrose (Heparin Sodium/Dextrose) Confirm Administered Dose 25,000 units IV .STK-MED ONE Stop: 11/08/18 09:43 Last Admin: 11/08/18 09:50 Dose: 1,350 units Documented by: [id number] Cosigned by: [id number] Sodium Chloride (Nss 1000ml) 1,000 mls @ 999 mls/hr IV .Q1H1M JUSTIN Stop: 11/08/18 08:15 Last Infusion: 11/08/18 08:40 Dose: 0 mls/hr Documented by: [id number] Admin: 11/08/18 07:35 Dose: 999 mls/hr Documented by: [id number] Ketorolac Tromethamine (Toradol) 15 mg IV NOW ONE Stop: 11/08/18 07:22 Last Admin: 11/08/18 07:35 Dose: 15 mg Documented by: [id number] Morphine Sulfate (Morphine Sulfate) 4 mg IV NOW STA Stop: 11/08/18 09:54 Last Admin: 11/08/18 10:04 Dose: 4 mg Documented by: [id number] Ondansetron HCl (Zofran) 4 mg IV NOW STA Stop: 11/08/18 09:54 Last Admin: 11/08/18 10:04 Dose: 4 mg Documented by: [id number] Medical Decision Making Differential Diagnosis Differential diagnoses includes but is not limited to acute coronary syndrome, myocardial infarction, pericarditis, pulmonary embolus, aortic dissection, pneumonia, pneumothorax, musculoskeletal, shingles, esophageal. Medical Records Attestation: I reviewed the patient's medical records. Home Medications Current Medication List: was personally reviewed by me Laboratory Data Attestation: I reviewed the patient's lab results. Result diagrams: 11/08/18 07:30 11/08/18 07:30 Lab Results 11/08/18 11/08/18 11/08/18 Range/Units 07:30 07:30 07:30 WBC 11.06 H (4.8-10.8) K/uL RBC 4.65 L (4.7-6.1) M/uL Hgb 14.4 (14.0-18.0) g/dL Hct 42.1 (42-52) % MCV 90.5 (80-100) fL MCH 31.0 (25-34) pg MCHC 34.2 (32-36) g/dL RDW Std Deviation 45.4 (36.4-46.3) fL RDW Coeff of Isidra 13.7 (11.5-14.5) % Plt Count 205 (130-400) K/uL MPV 8.6 (7.4-10.4) fL Immature Gran % (Auto) 0.4 % Neut % (Auto) 78.7 % Lymph % (Auto) 9.3 % [place] % (Auto) 10.9 % Eos % (Auto) 0.5 % Baso % (Auto) 0.2 % Immature Gran # (Auto) 0.04 H (0.00-0.02) K/uL Neut # (Auto) 8.70 H (1.4-6.5) K/uL Lymph # (Auto) 1.03 L (1.2-3.4) K/uL [place] # (Auto) 1.21 H (0.11-0.59) K/uL Eos # (Auto) 0.06 (0-0.5) K/uL Baso # (Auto) 0.02 (0-0.2) K/uL PT 11.8 (9.0-12.0) Seconds INR 1.2 H (0.9-1.1) APTT 26.6 (21.0-31.0) Seconds PTT Ratio 1.0 D-Dimer 2190 H* (0-500) ug/L FEU Sodium 140 (136-145) mmol/L Potassium 3.8 (3.5-5.1) mmol/L Chloride 108 H (98-107) mmol/L Carbon Dioxide 27 (21-32) mmol/L Anion Gap 5.0 (3-11) BUN 19 H (7-18) mg/dl Creatinine 1.45 H (0.6-1.4) mg/dl Est Cr Clr Drug Dosing 53.8 ml/min Est GFR ( Amer) 58.6 Est GFR (Non-Af Amer) 50.5 BUN/Creatinine Ratio 13.0 (10-20) Glucose 120 H (70-99) mg/dl Calcium 8.9 (8.5-10.1) mg/dl Total Bilirubin 1.1 H (0.2-1) mg/dl AST 9 L (15-37) U/L ALT 18 (12-78) U/L Alkaline Phosphatase 80 (45-117) U/L Troponin I < 0.015 (0-0.045) ng/ml Total Protein 7.1 (6.4-8.2) gm/dl Albumin 3.4 (3.4-5.0) gm/dl Globulin 3.7 (2.5-4.0) gm/dl Albumin/Globulin Ratio 0.9 (0.9-2) Imaging Data Radiologist's Impression: Radiology results as stated below per my review and the radiologist's interpretation: XR chest 1V portable CLINICAL HISTORY: Dyspnea COMPARISON STUDY: Chest CT April 26, 2018. FINDINGS: Bibasilar opacities favor atelectasis. There is no evidence for pulmonary edema. Cardiomediastinal silhouette is stable. Paucity of upper lobe vessels is noted. There is no pneumothorax or pleural effusion. IMPRESSION: Bibasilar opacities, atelectasis is favored. Electronically signed by: Brown Barroso M.D. 11/08/2018 7:22 AM US gallbladder CLINICAL HISTORY: Right upper quadrant abdominal pain. COMPARISON STUDY: Abdominal ultrasound February 12, 2018. CT of the abdomen and pelvis June 22, 2018. FINDINGS: Right kidney is surgically absent. Liver is sonographically normal. Exam is compromised by suboptimal penetration. No gallstones are identified. There is no gallbladder wall thickening. The pancreas is partially obscured. There is no biliary ductal dilatation. The common bile duct measures 5 mm in caliber. IMPRESSION: 1. No gallstones or biliary ductal dilatation. 2. Status post right nephrectomy. Electronically signed by: Brown Barroso M.D. 11/08/2018 9:[address] ANGIOGRAPHY OF THE CHEST, PULMONARY EMBOLUS PROTOCOL CLINICAL HISTORY: Dyspnea, chest pain and hemoptysis. COMPARISON STUDY: Chest CT April 26, 2018. Chest radiograph performed earlier today. TECHNIQUE: Following IV administration of 120 mL of Optiray-320, helical axial images of the chest were obtained utilizing the pulmonary embolus protocol. Maximal intensity projections and sagittal and coronal reformats were viewed on an independent 3D workstation. IV contrast was administered without complication. Automated exposure control was utilized for the study. A dose lowering technique was utilized adhering to the principles of ALARA. CT DOSE: 276.05 mGy.cm FINDINGS: Multiple segmental bilateral pulmonary emboli are noted, including segmental emboli within the lingula, left lower lobe, right upper lobe, right middle lobe and right lower lobe. There is no CT evidence for right heart strain. The heart is mildly enlarged. Mild dilatation of the ascending aorta measuring 4.1 cm is unchanged. Trace bilateral pleural effusions are noted. Note is made of a 4.9 x 3.2 cm subpleural right middle lobe opacity consistent with an infarct. There is no pneumothorax. Bony thorax is unremarkable. Upper abdomen is unremarkable. IMPRESSION: 1. Multiple segmental bilateral pulmonary emboli. 4.9 x 3.2 cm right middle lobe pulmonary infarct. 2. Trace bilateral pleural effusions. Electronically signed by: Brown Barroso M.D. 11/08/2018 9:10 AM ECG Data Attestation: I personally reviewed and interpreted this ECG as follows: Indication: chest pain Rate (beats per minute): 75 Rhythm: sinus rhythm Findings: + other (normal axis) and + nonspecific-ST abn (inferior; lateral); no PVC Comparison ECG Date: from (03/28/17) Change: the following changes noted (non-specific ST changes in the lateral leads is new) Blood Pressure Blood Pressure Findings: Normal blood pressure MDM Narrative Patient is a 62-year-old male with a past medical history of renal cancer the presents the ER for shortness of breath associated with right chest wall pain and a small amount of hemoptysis. Vitals are fairly unremarkable. Labs were obtained and showed no significant leukocytosis or anemia. D-dimer was significantly elevated at 2100. BMP with a creatinine 1.45. LFTs bilirubin were fairly normal. Troponin was negative. EKG with nonspecific ST wave changes. Ultrasound of the gallbladder and chest x-ray were initially unremarkable. Per my review of the chest x-ray there is no focal infiltrate. CT of the chest shows bilateral PEs with pleural effusion. Patient was given IV heparin bolus and drip. Patient was discussed with the hospitalist. He was updated bedside admitted to hospitalist for further work-up. Impression & Plan Bilateral pulmonary embolism, Pleural effusion, Chest pain Critical Care Time Critical Care Time: Yes Total Critical Care Time: 35 I have personally spent approximately 35 minutes of critical care time in the direct management of this patient. This includes bedside care, interpretation of diagnostic studies, and testing, discussion with consultants, patient, and family members, and other required patient management activities. This 35 minutes is in excess of all separately billable procedures. Discharge Plan Visit Data *Final* Discharge Date/Time: 11/08/18 11:26 Chief Complaint: Rib Injury/Pain Stated Complaint: RIP PAIN ED Provider: Bryant Bautista Discharge Problem: Bilateral pulmonary embolism, Pleural effusion, Chest pain Patient Disposition: Admitted As Inpatient Discharge Instructions Interventions: ED Discharge Assessment Last Done: 11/08/18 11:26 Discharge Problem: Chest pain Qualifiers: Chest pain type: unspecified Qualified Code(s): R07.9 - Chest pain, unspecified The scribe's documentation has been prepared under my direction and personally reviewed by me in its entirety. I confirm that the note above accurately reflects all work, treatment, procedures, and medical decision making performed by me.
--- NOTE | 2018-11-08 14:20 | Pulmonary Consultation ---
Date of Consultation November 08, 2018 Assessment & Plan (1) Bilateral pulmonary embolism: The patient is currently on a heparin drip. Will ultimately need to change to an oral agent. Would advise Tk or Linda if insurance covers. The complicating issue for this patient is that he indicates he will be covered by Medicare at the end of this month. Thus it may not be able to be determined what will be covered after this month. Coumadin obviously would be the alternative. There does not seem to be any definitive precipitating factor. He did have a relatively recent trip to [place] traveling [address] There is no history of family having blood clot disorder. There is no history of trauma. I did advise him to avoid situations such as being on ladders, being on roofs etc. He does ride motorcycle and I suggested that the choices his but I personally would not do it if I were him. I would not take the risk. The length of treatment should be at least 6 months. Consideration could be given to longer therapy if he was still felt to be at risk in light of the fact that was not precipitated per the patient has a history of malignancy and that is another consideration in this regard. (2) Pulmonary infarct: (3) Deep vein thrombosis (DVT) of both lower extremities: Same as treatment for pulmonary embolism (4) Night sweats: Consider checking thyroid functions and TB Gold interferon, even though there is no history of exposure and nothing on x-ray strongly suggestive for TB. (5) Hemoptysis: Follow clinically. Usually resolves fairly quickly if secondary to infarction. History of Present Illness Reason for Consultation: Pulmonary consultation is requested regarding acute pulmonary embolism Requesting Physician: Georgia Prieto PA-C Attending Physician: Kristyn Jung DO History of Present Illness The patient is being seen regarding acute pulmonary embolism. He is a 62-year-old male who was in his usual state of reasonably good health until 1 day prior to this admission. In the early to mid afternoon he developed some pain in the right anterolateral chest area. It was definitely hurting to take it deep breath. He felt like he could not take a breath in. He was not short of breath except for the feeling that he could not expand his lung. The patient has a chronic cough. He relates this to prior smoking. He usually brings up a little bit of clear to law sputum. Today however he coughed up on one occasion a small amount of bright red blood per he has not been short of breath. He does not feel that he is limited in any way except for the pain itself. He has not had chills or fevers. 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 He relates that he does sweat almost every night and has to change his shirts and sometimes change the bedding. The patient presented to the emergency room with the above-mentioned complaints. He did have an elevated d-dimer. He had a CT angios the chest done that was abnormal showing bilateral pulmonary emboli. He had a large area of infarction in the right lateral chest. He has been started on IV heparin. He is feeling much better mainly related to pain relief. He states he received morphine with good relief. The patient had venous Dopplers done. This shows bilateral lower extremity DVT. He is not had any symptoms in his legs. There is been no pain or discomfort. There is been no redness or swelling. He has no history of trauma to the legs. He is not had any recent surgeries except for the nephrectomy 8 months ago. The patient states that he is cancer free to the best of his knowledge. There is no family history of blood clotting. Allergies Allergy/AdvReac Type Severity Reaction Status Date / Time pollen extracts Allergy Mild HAY FEVER Verified 11/08/18 07:38 No Known Drug Allergies Allergy Unknown NKDA Verified 11/08/18 07:38 GLUE ON NICOTINE PATCH AdvReac Mild raised red Uncoded 11/08/18 07:38 patch Home Medications Home Medications Medication Instructions Recorded Confirmed Type buspirone 15 mg PO BID 03/09/18 11/08/18 History trazodone 50 mg PO HS 03/09/18 11/08/18 History atorvastatin 20 mg PO HS 11/08/18 11/08/18 History paroxetine HCl 1 mg PO BID 11/08/18 11/08/18 History Patient History Medical History Anxiety Hearing deficit HEARING AID- LEFT EAR Kidney tumor RIGHT- REASON FOR PROCEDURE Osteoarthritis Surgical History History of right nephrectomy History of colonoscopy History of esophagogastroduodenoscopy (EGD) History of herniorrhaphy INGUINAL History of hydrocelectomy RIGHT HYDROCELECTOMY= 04/13/17= LMA 5 PLACED- "UNABLE TO SEAT WELL. ? SPASM." ATRAMAUTIC DVL X 1. GRADE VIEW 1, MAC 3, ETT 7.5 AT [facility] History of tooth extraction History of total hip arthroplasty LEFT Social History Preferred Language: Sinhala Communication Ability: Effective Visual Impairment: No Limitations Predatory Animal Trapper Required: No Beliefs That Will Affect Care: Jehovah'S Witness Jehovah'S Witness Beliefs: synagogue pastor emily grady Current Living Situation: Spouse Feels Safe at Home: Yes Safety Concerns: Feels Safe At This Time Smoking Status: Former smoker Tobacco Type: cigarettes Cigarettes Per Day: 3-4 cig per day Smoking End Date: 02/2018 Second Hand Exposure: No Hx Alcohol Use: Yes Alcohol type: hard liquor Hx Substance Use: Yes substance use type: marijuana Last Used Substance: Days (ago) Review of Systems Review of Systems: General: Patient has night sweats as noted. Energy level is overall good. The patient works. He describes having a lot of stress at work. He does have anxiety. Neurologic: Denies syncope or near syncope. Ophthalmic: No visual complaints ENT: Denies complaints Cardiac: No angina type chest pains. No palpitations. Pulmonary: As noted above GI: Denies heartburn, nausea, vomiting, diarrhea, constipation. The patient has lost 45 to 50 pounds over the past 4 years. This apparently began after his . : Denies complaints Musculoskeletal: Denies complaints Dermatologic: Denies complaints Endocrine: Denies lymphadenopathy Physical Exam Physical Exam: The patient is a 62-year-old male who was cooperative alert and oriented. He was in no distress. Weight is 72.9 kg. Temperature is 36.7. Pupils were reactive to light and equal in size. Nasal passages clear. Mouth exam unremarkable with no erythema or exudate. Palpation of the neck reveals no lymph nodes or masses. Chest was of normal expansion and development. Cardiac rate 61/min. Rhythm regular. Blood pressure 137/83. Auscultation of the lung saleh revealed them to be clear bilaterally. There was no obvious pain with deep breaths. No wheezes, rales, or rhonchi heard. No rubs were heard. Respiratory rate 18. Saturation 94% on room air. Abdomen was soft. Bowel sounds present. There was no tenderness to palpation, masses, or organomegaly. Extremities showed no cyanosis clubbing or edema. Results & Data Vital Signs (Past 12 Hours) Vital Signs Temp Pulse Pulse Pulse Resp BP BP 11/08/18 11:54 36.7 C 61 18 137/83 11/08/18 11:26 36.5 C 66 18 115/73 11/08/18 11:01 66 18 11/08/18 11:00 65 65 14 115/73 115/73 11/08/18 10:45 68 17 11/08/18 10:31 72 20 11/08/18 10:30 72 72 20 130/83 130/83 11/08/18 10:15 72 21 11/08/18 10:01 73 21 11/08/18 10:00 72 74 16 130/81 130/81 11/08/18 09:57 78 17 11/08/18 09:56 74 18 122/80 11/08/18 09:45 66 18 132/78 11/08/18 08:57 139/80 11/08/18 07:50 65 18 139/81 11/08/18 07:45 69 22 11/08/18 07:41 69 18 139/81 11/08/18 07:31 82 18 11/08/18 07:30 66 11/08/18 06:52 36.5 C 84 18 148/79 H Pulse Ox 11/08/18 11:54 94 11/08/18 11:26 94 11/08/18 11:01 94 11/08/18 11:00 96 11/08/18 10:45 94 11/08/18 10:31 94 11/08/18 10:30 94 11/08/18 10:15 94 11/08/18 10:01 95 11/08/18 10:00 96 11/08/18 09:57 95 11/08/18 09:56 95 11/08/18 09:45 94 11/08/18 08:57 11/08/18 07:50 97 11/08/18 07:45 96 11/08/18 07:41 95 11/08/18 07:31 11/08/18 07:30 97 11/08/18 06:52 93 Laboratory Results White count is 11.06. Hemoglobin 14.4. Platelets 205,000. INR 1.2. PTT 26.6. D-dimer elevated 2190. Electrolytes show sodium 140 potassium 3.8 chloride 108 bicarb 27. BUN 19 with creatinine 1.45. Blood sugar 120. Calcium level 8.9. Bilirubin 1.1. AST and ALT are normal. Alk phos normal. Troponin negative. Total protein 7.1 with albumin 3.4 and globulin 3.7. Diagnostic Findings CT angios of the chest shows evidence of multiple segmental bilateral pulmonary emboli involving all lobes. There was no evidence for right heart strain. There was mild dilatation of the ascending aorta measuring 4.1 cm which is unchanged. Trace effusions noted. There is an increased opacity in the subpleural portion of the right middle lobe measuring 4.9 x 3.2 cm that is presumed to be a pulmonary infarction. Venous Doppler shows bilateral acute deep vein thrombosis involving the posterior tibial veins bilaterally. EKG showed minimal nonspecific ST and T wave changes. Echocardiogram is done and results are pending.
[2018-11-08 16:40] LABS: Partial Thromboplastin Ratio 2.9
[2018-11-08 16:44] LABS: Partial Thromboplastin Time 79.7 Seconds (21.0-31.0)
[2018-11-08] MEDS: MoRPHine SULFATE 4 MG/ML 1 ML CARP\\VIAL IV PRN (19:56)
[2018-11-08] MEDS: PARoxetine HCl 20 MG TAB PO SCH (19:57)
[2018-11-08] MEDS: TRAZODONE HCL 50 MG TAB PO SCH (19:57)
[2018-11-08] MEDS: ATORVASTATIN 20 MG TAB PO SCH (19:58)
[2018-11-08] MEDS: BusPIRone 15 MG TAB PO SCH (19:58)
[2018-11-08 23:58] LABS: Partial Thromboplastin Ratio 2.4
[2018-11-09] MEDS: SODIUM CHLORIDE 0.9% 1000ML 1,000 ML IV SCH (03:53)
[2018-11-09] MEDS: Heparin Adult STANDARD Wt-Based Dextrose 5% 25,000 units/500 mL IV SCH (05:55)
[2018-11-09 06:31] LABS: Hematocrit (blood only) 36.6 % (42-52); Hemoglobin 12.1 g/dL (14.0-18.0); Mean Corpuscular Hgb Conc 33.1 g/dL (32-36); Mean Platelet Volume 8.8 fL (7.4-10.4); Platelet Count 173 K/uL (130-400); RDW Coefficient of Variation 13.6 % (11.5-14.5); RDW Standard Deviation 45.4 fL (36.4-46.3); Red Blood Count 4.02 M/uL (4.7-6.1); White Blood Count 6.92 K/uL (4.8-10.8)
[2018-11-09 07:18] LABS: Albumin Globulin Ratio 0.9 (0.9-2); Albumin Level 2.7 gm/dl (3.4-5.0); BUN Creatinine Ratio 12.1 (10-20); Bilirubin,Total 0.4 mg/dl (0.2-1); Calcium 8.3 mg/dl (8.5-10.1); Creatinine Clr Calc Pharmacy 56.6 ml/min; Est GFR (African American) 63.3; Est GFR (Non-African American) 54.6; Globulin 3.1 gm/dl (2.5-4.0); Potassium 4.5 mmol/L (3.5-5.1); Total Protein 5.8 gm/dl (6.4-8.2)
[2018-11-09] MEDS: BusPIRone 15 MG TAB PO SCH ×2 (08:05→21:18)
[2018-11-09] MEDS: PARoxetine HCl 20 MG TAB PO SCH ×2 (08:05→21:18)
[2018-11-09] MEDS: APIXABAN 5 MG TABLET PO SCH ×2 (11:02→21:18)
[2018-11-09 11:08] LABS: Appearance Urine Clear (Clear); Bacteria Urine Automated Negative (Negative); Bilirubin Urine Negative (Negative); Cast Urine Automated 0 /lpf (0-5); Color Urine Yellow; Epithelial Cell Urine Auto 0-5 /lpf (0-5); Glucose Urine UA Negative (Negative); Ketones Urine Negative (Negative); Leukocyte Esterase Urine Negative (Negative); Nitrite Urine Negative (Negative); Protein Urine Negative (Negative); Specific Gravity Urine 1.016 (1.000-1.030); Urobilinogen Urine Negative (Negative); WBC Urine Automated 0 /hpf (0-5)
[2018-11-09 11:25] LABS: Creatinine Urine Random 55.2 mg/dl; Total Protein Urine Random 12.7 mg/dl (0-11.9)
--- NOTE | 2018-11-09 11:42 | Pulmonology Progress Note ---
Date of Service November 09, 2018 Assessment & Plan (1) Bilateral pulmonary embolism: The patient has been started on Eliquis. I have no objection to that. Hopefully will be covered by his insurance. Would suggest at least 6 months of anticoagulation. Would then need to consider if he would require longer-term depending upon his course and in light of the fact the clots were relatively unprovoked. (2) Deep vein thrombosis (DVT) of both lower extremities: (3) Hemoptysis: (4) Night sweats: TSH level noted to be normal. TB Gold QuantiFERON study pending. Subjective The patient is overall feeling well. The pleuritic pain on the right side of his chest has diminished significantly. He has had no hemoptysis since yesterday. He is not short of breath although he has not been exerting himself to any significant degree. He feels more calm and relaxed. Review of Systems Review of Systems: As noted above Physical Exam Physical Exam: The patient is a 62-year-old male who was cooperative alert and oriented. He was in no distress. Temperature is 36.8. ENT exam unremarkable. No evidence of blood in the nostrils. Venous pulsations in the neck noted with patient near supine. Cardiac rate 77/min. Rhythm is regular. Blood pressure 123/74. Lung saleh were clear bilaterally. No wheezes, rales, or rhonchi heard. Oxygen saturation 95% on room air. Respiratory rate 18. No rubs heard. Extremities showed no cyanosis clubbing or edema. Results & Data Vital Signs (Past 12 Hours) Vital Signs Temp Pulse Pulse Resp BP BP Pulse Ox 11/09/18 11:29 36.8 C 77 18 123/74 95 11/09/18 07:37 36.9 C 66 16 121/69 99 11/09/18 04:22 36.7 C 71 18 119/75 91 11/08/18 23:42 68 Laboratory Results White count today 6.92. Hemoglobin 12.1. Yesterday was 14.4. Platelets 173,000. Electrolytes show sodium 145 potassium 4.5 chloride 113 bicarb 28. BUN 17 with creatinine 1.36. Blood sugar 101. Calcium 8.3. Total protein decreased to 5.8 and albumin decreased to 2.7. Diagnostic Findings Echocardiogram shows normal ejection fraction of 55 to 60%. However there is diastolic dysfunction grade 3 with a suggestion of marked congestive heart failure.
--- NOTE | 2018-11-09 13:05 | Hospitalist Progress Note ---
Date of Service November 09, 2018 Assessment & Plan (1) Bilateral pulmonary embolism: - Presented with pleuritic chest pain; CT confirmed multiple segmental bilateral PEs with right middle lobe pulm infarct measuring 4.9 x 3.2 cm and bilat pleural effusions. - Doppler showed bilat acute DVT of posterior tibial veins. Acute bilateral pulmonary emboli due to bilateral acute DVT of posterior tibial veins - Pulm consulted, appreciate input. VTE was unprovoked; does have h/o renal cell carcinoma, follows with urology. - Will transition heparin drip to Eliquis BID for anticoagulation therapy. - Morphine IV prn pain. - Echo with no evidence of right heart strain. - IS, Flutter valve, supplemental O2 prn. (2) Pulmonary infarct: - As noted above. (3) Diastolic dysfunction: - TTE showed grade III diastolic dysfunction with marked congestive failure. - Monitor net I/Os and daily weights. - Currently appears well compensated, will monitor. (4) Pleural effusion: - Trace bilat pleural effusions in setting of PE and diastolic dysfunction. - Currently maintained on room air. (5) Chest pain: - Likely pleuritic pain related to bilat PEs. - Trop negative x 3; EKG was also negative. (6) Renal cell carcinoma: - Follows with urology, Dr. Ash as an outpatient - Status post right nephrectomy February 2018, did not receive chemotherapy or XRT - Creatinine at baseline; will monitor. - Avoid nephrotoxic agents. (7) History of right nephrectomy: - As noted above. (8) Anxiety: - Continue Paxil, Buspar, Trazodone as prescribed. (9) Hypercholesteremia: - Continue statin as prescribed. (10) Night sweats: - TSH level was WNL; TB Gold Quantiferon is pending. - H/ renal cell carcinoma -- follows with urology. (11) DVT prophylaxis: - Eliquis BID. Dispo: Discharge to home likely on 11/10/18; will provide card to Eliquis script at discharge. Supervising Physician Co-Signing Physician Notes Attending Attestation - Chart reviewed in detail, care plan d/w MOSES Ridley. I agree w/ the najera components of her documentation. Patient with b/l DVTs and PEs. Unprovoked. Labs/vitals stable. Etiology of VTE uncertain - perhaps related to recent history of RCC? Has had nightsweats since the time of his RCC diagnosis - this needs additional work-up. The nightsweats could reflect an occult process that set him up for this VTE event. Agree with novel agent (eliquis) for VTE. Barry Candelaria MD Subjective Pt. states right sided pleuritic pain is improved -- mostly resolved. Denies shortness of breath, further episodes of hemoptysis, chest pain, N/V. He does have night sweats, sometimes to the point of being "drenched". Review of Systems Review of Systems: All systems reviewed & are unremarkable except as noted in HPI & below Constitutional: no fever, no chills, no fatigue, no weakness, no anorexia and no weight loss Respiratory: + pain on inspiration; no cough, no dyspnea and no dyspnea on exertion Cardiovascular: no chest pain, no palpitations and no edema Gastrointestinal: no abdominal pain, no nausea, no vomiting and no constipation Genitourinary: no difficulty urinating Musculoskeletal: no back pain and no joint pain Integumentary: no non-healing lesions Allergy / Immunological: no rash Physical Exam Physical Exam: General: Resting comfortably HEENT: NC/AT; PERRLA with EOMI; [place] conjunctiva, MMM. No erythema of posterior pharynx Neck: Supple and nontender Cardiac: RRR Lungs: CTA bilaterally; No rhonchi, wheezing, or rales Abdomen: Bowel normoactive X 4; Nontender to palpation Extremities: Warm. No edema present Neuro: No focal weakness Skin: No rash Results & Data Vital Signs (Past 12 Hours) Vital Signs Temp Pulse Resp BP BP Pulse Ox 11/09/18 11:29 36.8 C 77 18 123/74 95 11/09/18 07:37 36.9 C 66 16 121/69 99 11/09/18 04:22 36.7 C 71 18 119/75 91 Laboratory Results 11/09/18 11/09/18 11/09/18 Range/Units 10:54 10:54 08:20 WBC (4.8-10.8) K/uL RBC (4.7-6.1) M/uL Hgb (14.0-18.0) g/dL Hct (42-52) % MCV (80-100) fL MCH (25-34) pg MCHC (32-36) g/dL RDW Std Deviation (36.4-46.3) fL RDW Coeff of Isidra (11.5-14.5) % Plt Count (130-400) K/uL MPV (7.4-10.4) fL APTT (21.0-31.0) Seconds PTT Ratio Sodium (136-145) mmol/L Potassium (3.5-5.1) mmol/L Chloride (98-107) mmol/L Carbon Dioxide (21-32) mmol/L Anion Gap (3-11) BUN (7-18) mg/dl Creatinine (0.6-1.4) mg/dl Est Cr Clr Drug Dosing ml/min Est GFR ( Amer) Est GFR (Non-Af Amer) BUN/Creatinine Ratio (10-20) Glucose (70-99) mg/dl Calcium (8.5-10.1) mg/dl Total Bilirubin (0.2-1) mg/dl AST (15-37) U/L ALT (12-78) U/L Alkaline Phosphatase (45-117) U/L Troponin I (0-0.045) ng/ml Total Protein (6.4-8.2) gm/dl Albumin (3.4-5.0) gm/dl Globulin (2.5-4.0) gm/dl Albumin/Globulin Ratio (0.9-2) TSH (0.300-4.500) uIu/ml Urine Color Yellow Urine Appearance Clear (Clear) Urine pH 5.0 (4.5-7.5) Ur Specific [place] 1.016 (1.000-1.030) Urine Protein Negative (Negative) Urine Glucose (UA) Negative (Negative) Urine Ketones Negative (Negative) Urine Blood Trace H (Negative) Urine Nitrite Negative (Negative) Urine Bilirubin Negative (Negative) Urine Urobilinogen Negative (Negative) Ur Leukocyte Esterase Negative (Negative) Urine WBC (Auto) 0 (0-5) /hpf Urine RBC (Auto) 0-4 (0-4) /hpf U Hyaline Cast (Auto) 0 (0-5) /lpf U Epithel Cells (Auto) 0-5 (0-5) /lpf Urine Bacteria (Auto) Negative (Negative) Ur Random Creatinine 55.2 mg/dl U Random Total Protein 12.7 H (0-11.9) mg/dl Protein/Creatinin Ratio 0.2 (0-0.2) TB Test (QFT) Gold Plus Pending TB Test (QFT) Nil Pending TB Test Mitogen - Nil Pending TB Test Ag - Nil 1 Pending TB Test Ag - Nil 2 Pending 11/09/18 11/09/18 11/09/18 Range/Units 08:20 06:14 06:14 WBC 6.92 (4.8-10.8) K/uL RBC 4.02 L (4.7-6.1) M/uL Hgb 12.1 L (14.0-18.0) g/dL Hct 36.6 L (42-52) % MCV 91.0 (80-100) fL MCH 30.1 (25-34) pg MCHC 33.1 (32-36) g/dL RDW Std Deviation 45.4 (36.4-46.3) fL RDW Coeff of Isidra 13.6 (11.5-14.5) % Plt Count 173 (130-400) K/uL MPV 8.8 (7.4-10.4) fL APTT (21.0-31.0) Seconds PTT Ratio Sodium 145 (136-145) mmol/L Potassium 4.5 D (3.5-5.1) mmol/L Chloride 113 H (98-107) mmol/L Carbon Dioxide 28 (21-32) mmol/L Anion Gap 3.0 (3-11) BUN 17 (7-18) mg/dl Creatinine 1.36 (0.6-1.4) mg/dl Est Cr Clr Drug Dosing 56.6 ml/min Est GFR ( Amer) 63.3 Est GFR (Non-Af Amer) 54.6 BUN/Creatinine Ratio 12.1 (10-20) Glucose 101 H (70-99) mg/dl Calcium 8.3 L (8.5-10.1) mg/dl Total Bilirubin 0.4 D (0.2-1) mg/dl AST 7 L (15-37) U/L ALT 14 (12-78) U/L Alkaline Phosphatase 67 (45-117) U/L Troponin I (0-0.045) ng/ml Total Protein 5.8 L (6.4-8.2) gm/dl Albumin 2.7 L (3.4-5.0) gm/dl Globulin 3.1 (2.5-4.0) gm/dl Albumin/Globulin Ratio 0.9 (0.9-2) TSH 2.700 (0.300-4.500) uIu/ml Urine Color Urine Appearance (Clear) Urine pH (4.5-7.5) Ur Specific [place] (1.000-1.030) Urine Protein (Negative) Urine Glucose (UA) (Negative) Urine Ketones (Negative) Urine Blood (Negative) Urine Nitrite (Negative) Urine Bilirubin (Negative) Urine Urobilinogen (Negative) Ur Leukocyte Esterase (Negative) Urine WBC (Auto) (0-5) /hpf Urine RBC (Auto) (0-4) /hpf U Hyaline Cast (Auto) (0-5) /lpf U Epithel Cells (Auto) (0-5) /lpf Urine Bacteria (Auto) (Negative) Ur Random Creatinine mg/dl U Random Total Protein (0-11.9) mg/dl Protein/Creatinin Ratio (0-0.2) TB Test (QFT) Gold Plus TB Test (QFT) Nil TB Test Mitogen - Nil TB Test Ag - Nil 1 TB Test Ag - Nil 2 11/08/18 11/08/18 11/08/18 Range/Units 23:04 21:21 16:05 WBC (4.8-10.8) K/uL RBC (4.7-6.1) M/uL Hgb (14.0-18.0) g/dL Hct (42-52) % MCV (80-100) fL MCH (25-34) pg MCHC (32-36) g/dL RDW Std Deviation (36.4-46.3) fL RDW Coeff of Isidra (11.5-14.5) % Plt Count (130-400) K/uL MPV (7.4-10.4) fL APTT 65.0 H* 79.7 H* (21.0-31.0) Seconds PTT Ratio 2.4 2.9 Sodium (136-145) mmol/L Potassium (3.5-5.1) mmol/L Chloride (98-107) mmol/L Carbon Dioxide (21-32) mmol/L Anion Gap (3-11) BUN (7-18) mg/dl Creatinine (0.6-1.4) mg/dl Est Cr Clr Drug Dosing ml/min Est GFR ( Amer) Est GFR (Non-Af Amer) BUN/Creatinine Ratio (10-20) Glucose (70-99) mg/dl Calcium (8.5-10.1) mg/dl Total Bilirubin (0.2-1) mg/dl AST (15-37) U/L ALT (12-78) U/L Alkaline Phosphatase (45-117) U/L Troponin I < 0.015 (0-0.045) ng/ml Total Protein (6.4-8.2) gm/dl Albumin (3.4-5.0) gm/dl Globulin (2.5-4.0) gm/dl Albumin/Globulin Ratio (0.9-2) TSH (0.300-4.500) uIu/ml Urine Color Urine Appearance (Clear) Urine pH (4.5-7.5) Ur Specific [place] (1.000-1.030) Urine Protein (Negative) Urine Glucose (UA) (Negative) Urine Ketones (Negative) Urine Blood (Negative) Urine Nitrite (Negative) Urine Bilirubin (Negative) Urine Urobilinogen (Negative) Ur Leukocyte Esterase (Negative) Urine WBC (Auto) (0-5) /hpf Urine RBC (Auto) (0-4) /hpf U Hyaline Cast (Auto) (0-5) /lpf U Epithel Cells (Auto) (0-5) /lpf Urine Bacteria (Auto) (Negative) Ur Random Creatinine mg/dl U Random Total Protein (0-11.9) mg/dl Protein/Creatinin Ratio (0-0.2) TB Test (QFT) Gold Plus TB Test (QFT) Nil TB Test Mitogen - Nil TB Test Ag - Nil 1 TB Test Ag - Nil 2 11/08/18 Range/Units 14:02 WBC (4.8-10.8) K/uL RBC (4.7-6.1) M/uL Hgb (14.0-18.0) g/dL Hct (42-52) % MCV (80-100) fL MCH (25-34) pg MCHC (32-36) g/dL RDW Std Deviation (36.4-46.3) fL RDW Coeff of Isidra (11.5-14.5) % Plt Count (130-400) K/uL MPV (7.4-10.4) fL APTT (21.0-31.0) Seconds PTT Ratio Sodium (136-145) mmol/L Potassium (3.5-5.1) mmol/L Chloride (98-107) mmol/L Carbon Dioxide (21-32) mmol/L Anion Gap (3-11) BUN (7-18) mg/dl Creatinine (0.6-1.4) mg/dl Est Cr Clr Drug Dosing ml/min Est GFR ( Amer) Est GFR (Non-Af Amer) BUN/Creatinine Ratio (10-20) Glucose (70-99) mg/dl Calcium (8.5-10.1) mg/dl Total Bilirubin (0.2-1) mg/dl AST (15-37) U/L ALT (12-78) U/L Alkaline Phosphatase (45-117) U/L Troponin I < 0.015 (0-0.045) ng/ml Total Protein (6.4-8.2) gm/dl Albumin (3.4-5.0) gm/dl Globulin (2.5-4.0) gm/dl Albumin/Globulin Ratio (0.9-2) TSH (0.300-4.500) uIu/ml Urine Color Urine Appearance (Clear) Urine pH (4.5-7.5) Ur Specific [place] (1.000-1.030) Urine Protein (Negative) Urine Glucose (UA) (Negative) Urine Ketones (Negative) Urine Blood (Negative) Urine Nitrite (Negative) Urine Bilirubin (Negative) Urine Urobilinogen (Negative) Ur Leukocyte Esterase (Negative) Urine WBC (Auto) (0-5) /hpf Urine RBC (Auto) (0-4) /hpf U Hyaline Cast (Auto) (0-5) /lpf U Epithel Cells (Auto) (0-5) /lpf Urine Bacteria (Auto) (Negative) Ur Random Creatinine mg/dl U Random Total Protein (0-11.9) mg/dl Protein/Creatinin Ratio (0-0.2) TB Test (QFT) Gold Plus TB Test (QFT) Nil TB Test Mitogen - Nil TB Test Ag - Nil 1 TB Test Ag - Nil 2 PG Care Time/CCT Total # of Minutes Spent Total Time Spent with Patient: Total time spent is greater than 50% in coordination of care (as documented) at patient's floor/unit and/or counseling patient: (1) Chest pain Chest pain type: unspecified Qualified Code(s): R07.9 - Chest pain, unspecified
[2018-11-09] MEDS: MoRPHine SULFATE 4 MG/ML 1 ML CARP\\VIAL IV PRN ×2 (14:37→21:22)
[2018-11-09] MEDS: ATORVASTATIN 20 MG TAB PO SCH (21:18)
[2018-11-09] MEDS: TRAZODONE HCL 50 MG TAB PO SCH (21:18)
[2018-11-10 07:19] LABS: Hematocrit (blood only) 39.8 % (42-52); Hemoglobin 13.2 g/dL (14.0-18.0); Mean Corpuscular Hgb Conc 33.2 g/dL (32-36); Mean Corpuscular Volume 91.7 fL (80-100); Mean Platelet Volume 9.1 fL (7.4-10.4); Platelet Count 208 K/uL (130-400); RDW Coefficient of Variation 13.4 % (11.5-14.5); RDW Standard Deviation 45.1 fL (36.4-46.3); Red Blood Count 4.34 M/uL (4.7-6.1); White Blood Count 6.43 K/uL (4.8-10.8)
[2018-11-10 07:32] LABS: Partial Thromboplastin Ratio 1.1; Partial Thromboplastin Time 30.8 Seconds (21.0-31.0)
[2018-11-10 07:49] LABS: BUN Creatinine Ratio 13.2 (10-20); Calcium 8.9 mg/dl (8.5-10.1); Creatinine Clr Calc Pharmacy 59.2 ml/min; Est GFR (African American) 66.8; Est GFR (Non-African American) 57.7
[2018-11-10] MEDS: APIXABAN 5 MG TABLET PO SCH (07:51)
[2018-11-10] MEDS: PARoxetine HCl 20 MG TAB PO SCH (07:51)
[2018-11-10] MEDS: BusPIRone 15 MG TAB PO SCH (07:51)
[2018-11-10 07:52] LABS: Albumin Globulin Ratio 0.8 (0.9-2); Bilirubin,Total 0.5 mg/dl (0.2-1); Globulin 3.6 gm/dl (2.5-4.0); Total Protein 6.6 gm/dl (6.4-8.2)
--- NOTE | 2018-11-10 14:46 | Discharge Summary ---
Date of Service November 10, 2018 Admission HPI Per Admitting Provider This is a 62-year-old male with PMHx of Right nephrectomy d/t RCC in February 2018, remote tobacco use - smoked 1/2-3/4 of a pack x 15 years, quit 8 months ago, anxiety, depression, insomnia, HLD, vitamin D deficiency who presents today with a right-sided deep chest pain x1 day. Patient notes that he was having difficulty taking deep breaths. He denies dyspnea at rest or on exertion specifically. Patient was coughing and having difficulty clearing, then coughed up a bloody clot the size of a quarter this morning. He was recently traveling last weekend to [facility], with a stay overnight to visit family. He admits to sitting for a large portion of his day during work and at home. He does not exercise routinely. He denies any calf pain or swelling of the legs. The patient has been under significant amount of stress at work recently and notes he is planning on retiring next summer which is causing him increased stress versus him looking forward to it. D-dimer significantly elevated at 2190 CTA reveals multiple segmental bilateral pulmonary embolisms, with a right middle lobe pulmonary infarct measuring 4.9 x 3.2 cm and bilateral pleural effusions. Started on a heparin drip + bolus Admission Exam Per Admitting Provider General: awake, alert, no apparent distress, + anxious affect Head: Normocephalic, atraumatic ENT: PERRL, EOMI, no pharyngeal exudate, mucous membranes moist Chest: Clear to auscultation except diminished in the RML, O2 sats =94% on room air, no adventitious breath sounds Cardiac: Regular rate and rhythm, no murmur, no JVD, normal peripheral pulses, good capillary refill Abdominal: NABS x 4 quadrants, soft, nontender to palpation, no rebound, guarding or tenderness Extremities: Normal inspection, no peripheral edema or erythema, calfs nontender to palpation Psych: Anxious mood and affect Neuro: AAO x 3, no motor deficits, speech is clear Skin: no rash or erythema Principal Diagnosis Bilateral Pulmonary Emboli Discharge Exam General: Resting comfortably HEENT: NC/AT; PERRLA with EOMI; [place]well conjunctiva, MMM. No erythema of posterior pharynx Neck: Supple and nontender Cardiac: RRR Lungs: CTA bilaterally; No rhonchi, wheezing, or rales Abdomen: Bowel normoactive X 4; Nontender to palpation Extremities: Warm. No edema present Neuro: No focal weakness Skin: No rash Discharge Data Allergies Allergy/AdvReac Type Severity Reaction Status Date / Time pollen extracts Allergy Mild HAY FEVER Verified 11/16/18 09:28 No Known Drug Allergies Allergy Unknown NKDA Verified 11/16/18 09:28 GLUE ON NICOTINE PATCH AdvReac Mild raised red Uncoded 11/16/18 09:28 patch Consultations 11/08/18 09:24 ED Decision to Admit Stat 11/08/18 11:52 Consult Case Management - Discharge Planning Routine Consult Pulmonology Routine 11/08/18 12:13 Consult Patient Rep / Service Excellence [Consult Patient Services] Routine Ordered Studies 11/08/18 07:05 CT angio chest PE protocol Stat US gallbladder Stat CXR 11/08/18 10:41 US venous doppler LE BI Stat Hospital Course (1) Bilateral pulmonary embolism: Presented with pleuritic chest pain; CT confirmed multiple segmental bilateral PEs with right middle lobe pulm infarct measuring 4.9 x 3.2 cm and bilat pleural effusions. Doppler showed bilat acute DVT of posterior tibial veins. Pulm consulted, appreciate input. VTE was unprovoked; does have h/o renal cell carcinoma, follows with urology. Transitioned Heparin drip to Eliquis BID. Echo with no evidence of right heart strain. IS, Flutter valve, supplemental O2 prn. (2) Pulmonary infarct: As noted above. (3) Diastolic dysfunction: TTE showed grade III diastolic dysfunction with marked congestive failure. Monitored net I/Os and daily weights. Appeared well compensated. (4) Pleural effusion: Trace bilat pleural effusions in setting of PE and diastolic dysfunction. Maintained on room air. (5) Chest pain: Likely pleuritic pain related to bilat PEs. Trop negative x 3; EKG was also negative. (6) Renal cell carcinoma: Follows with urology, Dr. Ash as an outpatient Status post right nephrectomy February 2018, did not receive chemotherapy or XRT Creatinine at baseline Avoid nephrotoxic agents. (7) History of right nephrectomy: As noted above. (8) Anxiety: Continued Paxil, Buspar, Trazodone as prescribed. (9) Hypercholesteremia: Continuef statin as prescribed. (10) Night sweats: TSH level was WNL; TB Gold Quantiferon is pending. H/ renal cell carcinoma -- follows with urology. (11) DVT prophylaxis: Eliquis BID. Stable for discharge on 11/10/18. Total Time Total Time Spent Total Time Spent (In Minutes): >30 minutes Total Time Includes: Examination of the Patient, Discharge Planning, Medication Reconciliation, Communication With Other Providers and Other Discharge Plan Discharge Items Patient Disposition: Home - Self-Care Reason For Visit: BILATERAL PE, PULMONARY INFARCT Discharge Diagnosis: Bilateral Pulmonary Emboli Condition: Good Discharge Goals: Decrease discomfort, Improve disease control, Improve function, Increase independence and Prevent disease Activity: As commented below Exercise/Sports: Wait until after follow-up appointment Non-emergency contact: Primary Care Provider Call non-emergency contact if: you have any medication questions, your symptoms worsen, your pain is not controlled, your pain is worsening, your pain is unusual for you, your pain is concerning for you and you have a fever Follow-up/Referrals: Wisam Kunz III, CRNP [Primary Care Provider] - 11/13/18 9:15 am (Please, follow up at SOFIA Kunz's office with his associate, Dr. Auguste, on MondayNovember 13 at 9:15 am. *If you need to change this appointment, call the office at [phone].) Diet: Heart Healthy Addtl Provider Instructions: 1. Bilateral Pulmonary Embolism/DVT * Please continue Eliquis as follows for anticoagulation therapy: - 10 mg twice daily until 11/15/18. - Start 5 mg twice daily on 11/16/18. * Monitor for signs of bleeding, including frequent nose bleed, blood in the urine, dark tarry stools or bright red blood per rectum. Please contact your family doctor if you develop bleeding. * Please follow up with your family doctor as scheduled on 11/13/18. 2. Renal Cell Carcinoma * Please follow up with urology as scheduled. * Renal function is currently at baseline. 3. Prescription for new medication (Eliquis) was sent to your pharmacy. A coupon was also provided for a 30 day free trial. You will need to discuss cost of medication with your primary care provider once 30 day trial is completed (and in the setting of Medicare). Prescriptions: Continued atorvastatin 20 mg tablet 20 mg PO HS RF: 0 Discontinued paroxetine HCl 20 mg tablet 1 mg PO BID RF: 0 No Action buspirone 15 mg tablet 15 mg PO BID RF: 0 paroxetine HCl 20 mg tablet 20 mg PO BID Qty: 0 RF: 0 trazodone 50 mg tablet 50 mg PO HS RF: 0 Eliquis 5 mg tablet 5 mg PO .COMPLEX RF: 0 Stand-Alone Forms: [facility] [employer]/Other Patient Handouts: DVT, DVT Complications, DVT Procedures, Embolism Pulmonary, Effusion Pleural, DVT Prevent, DVT Tx, DVT Dc, Embolism Pulmonary Dc, Effusion Pleural Ch Discharge Orders: Discharge Order (Routine); Ordered 11/10/18 Ordered By: Mikaela Ridley Admission Data Admit Date/Time: 11/08/18 10:15 Attending Provider: Barry Candelaria Admit Provider: Kristyn Jung Primary Care Provider: Wisam Kunz III Other Providers: José Gonzalez ; Kristyn Jung Service: Telemetry Other Interventions: Discharge Summary Assessment (RN) Last Done: 11/10/18 14:04 Pending Studies at Discharge: Yes Studies:: Quantiferon TB test. DC Date/Time DO NOT enter until pt leaves facility: 11/10/18 14:53 Supervising Physician Co-Signing Physician Notes Attending Attestation and Discharge Note - Patient seen/examined, chart reviewed in detail, discharge care plan d/w MOSES Ridley. I agree w/ the najera components of her discharge documentation. 62yo male with h/o RCC s/p nephrectomy 2018 who presented with hemoptysis and pleuritic chest discomfort. Imaging demonstrated b/l PEs with right-sided infarction along with b/l DVTs. He has traveled recently but the travel was <[address]. Labs/vitals stable throughout his stay. Etiology of VTE uncertain - perhaps related to recent history of RCC? Initially on IV heparin then transitioned to oral eliquis BID. He will need to take such for at least 6 months. He also reported nightsweats since the time of his RCC diagnosis - this needs additional work-up. The nightsweats could reflect an occult process that set him up for this VTE event. Discharge exam - gen: thin, NAD neck: no lymphadenopathy heart: RRR s1 s2 no murmur lungs: CTA b/l abd: soft, no HSM, NT ext: no edema psych: anxious Barry Candelaria MD
[2018-11-12 16:31] LABS: Quantiferon Mitogen-NIL >10.00 IU/ML; Quantiferon NIL 0.03 IU/ML; Quantiferon TB Gold Plus NEGATIVE (NEGATIVE); Quantiferon TB1-NIL <0.00 IU/ML
[2018-11-16] MEDS ORDERED: APIXABAN 5 MG TABLET PO SCH (09:00)
== END 2018-11-10 14:53 | disposition home or self-care (01) | DRG 299 ==
LOC: ED 06:47 → SUATTDRO 10:15 → 2S 10:15
DX: J90 Pleural effusion, not elsewhere classified; E78.00 Pure hypercholesterolemia, unspecified; F41.9 Anxiety disorder, unspecified; I82.443 Acute embolism and thrombosis of tibial vein, bilateral; Z90.5 Acquired absence of kidney; Z85.528 Personal history of other malignant neoplasm of kidney; I26.99 Other pulmonary embolism without acute cor pulmonale